=== PATIENT | female | born 1980 ===

== ENCOUNTER 2018-05-30 17:29 | Emergency (ER) | payer SELFPAY ==
[~2018-05-30] VITALS: Ht 157.5 cm; Wt 60.5 kg
[2018-05-30 17:31] VITALS: Ht 157.5 cm; Wt 60.5 kg
[2018-05-30] MEDS ORDERED: CLEOCIN HCL300 MG PO (18:19)
[2018-05-30] MEDS ORDERED: NORCO 7.5/325 T1 TA1 PO (18:20)
[2018-05-30 18:34] VITALS: BP 130/84
== END 2018-05-30 18:37 | disposition home or self-care (01) ==
LOC: D.ER 17:29
DX: S81.012A Laceration without foreign body, left knee, initial encounter (principal); W18.30XA Fall on same level, unspecified, initial encounter; Y93.89 Activity, other specified; Y92.89 Other specified places as the place of occurrence of the external cause; F17.200 Nicotine dependence, unspecified, uncomplicated